=== PATIENT | female | born 1975 ===

== ENCOUNTER 2020-04-17 13:06 | Emergency (ER) | payer MEDICAID ==
[~2020-04-17] VITALS: Ht 167.6 cm; Wt 85.9 kg
[2020-04-17 13:09] VITALS: BP 148/109
--- NOTE | 2020-04-17 13:19 | NUR ---
PT AMBULATED TO ER BED 07
--- NOTE | 2020-04-17 13:50 | NUR ---
ERMD AT BEDSIDE
[2020-04-17] MEDS ORDERED: KETOROLAC 60 MG/2 ML VIAL IM ONE (13:55)
--- NOTE | 2020-04-17 14:05 | NUR ---
DENIES RECENT TRAVEV LONG CAR RIDES OR AIRPLANEIDE.AMBULATORY WITH STEADY GAIT NO SWELLING ORDERS NOTED
[2020-04-17 14:49] VITALS: BP 140/101
--- NOTE | 2020-04-17 14:50 | NUR ---
Patient discharged with v/s stable. Written and verbal after care instructions given and explained. Patient alert, oriented and verbalized understanding of instructions. Ambulatory with steady gait. All questions addressed prior to discharge. ID band removed. Patient advised to follow up with PMD. Rx of ROBAXIN, IBUPROFEN AND TRAMADOL given. Patient educated on indication of medication including possible reaction and side effects. Opportunity to ask questions provided and answered.
== END 2020-04-17 14:50 | disposition home or self-care (01) ==
LOC: MED 13:06
DX: M54.41 Lumbago with sciatica, right side (principal); M54.42 Lumbago with sciatica, left side
CPT/HCPCS: 72100; 81002; 81025; 96372; 99283; J1885

== ENCOUNTER 2020-12-03 09:23 | Emergency (ER) | payer MEDICAID ==
[~2020-12-03] VITALS: Ht 172.7 cm; Wt 87.1 kg
[2020-12-03 09:35] VITALS: BP 124/74
--- NOTE | 2020-12-03 09:38 | NUR ---
Patient given urine cup and ambulated to lobby
[2020-12-03] MEDS ORDERED: DICYCLOMINE 20 MG/2 ML VIAL IM ONE (09:55)
[2020-12-03 10:32] LABS: BASOPHILS % (AUTO) 0.8 % (0.0-2.0); EOSINOPHILS # (AUTO) 0.2 K/uL (0-0.4); EOSINOPHILS % (AUTO) 4.3 % (0.0-4.0); HEMATOCRIT 41.4 % (36-48); HEMOGLOBIN 13.8 g/dL (12.0-16.0); LYMPHOCYTES # (AUTO) 1.6 K/uL (2.5-16.5); LYMPHOCYTES % (AUTO) 30.5 % (20.5-51.1); MEAN CORPUSCULAR HEMOGLOBIN 29 pg (27-31); MEAN CORPUSCULAR HGB CONC 33 g/dL (33-37); MEAN CORPUSCULAR VOLUME 86.5 fL (80-94); MONOCYTES # (AUTO) 0.3 K/uL (0.8-1.0); NEUTROPHILS # (AUTO) 3.2 K/uL (1.8-7.7); NEUTROPHILS % (AUTO) 59.4 % (42.2-75.2); PLATELET COUNT (AUTO) 229 K/uL (140-450); RED BLOOD CELL COUNT(AUTO) 4.79 MIL/uL (4.20-5.40); RED CELL DISTRIBUTION WIDTH 13.5 % (11.6-13.7); WHITE BLOOD COUNT (AUTO) 5.3 K/uL (4.8-10.8)
[2020-12-03 10:49] LABS: ALBUMIN 3.8 g/dL (3.4-5.0); ANION GAP 10.9 (8-16); CARBON DIOXIDE 28.1 mmol/L (21-32); CREATININE 0.7 mg/dL (0.6-1.3); TOTAL BILIRUBIN 0.5 mg/dL (0.0-1.0)
[2020-12-03 11:13] VITALS: BP 124/74
--- NOTE | 2020-12-03 11:13 | NUR ---
Patient discharged with v/s stable. Written and verbal after care instructions given and explained. Patient alert, oriented and verbalized understanding of instructions. Ambulatory with steady gait. All questions addressed prior to discharge. ID band removed. Patient advised to follow up with PMD. Rx of zofran 4mg, Bentyl 20mg given. Patient educated on indication of medication including possible reaction and side effects. Opportunity to ask questions provided and answered.
== END 2020-12-03 11:13 | disposition home or self-care (01) ==
LOC: MED 09:23
DX: R19.7 Diarrhea, unspecified (principal); Z90.49 Acquired absence of other specified parts of digestive tract
CPT/HCPCS: 36415; 80053; 81002; 81025; 83690; 85025; 96372; 99283; J0500

== ENCOUNTER 2021-02-18 15:06 | Emergency (ER) | payer MEDICAID ==
[~2021-02-18] VITALS: Ht 172.7 cm; Wt 68.0 kg
[2021-02-18 15:09] VITALS: BP 121/79
[2021-02-18] MEDS ORDERED: KETOROLAC 60 MG/2 ML VIAL IM ONE (16:25)
[2021-02-18] MEDS ORDERED: ONDANSETRON 4 MG ODT PO ONE (16:30)
[2021-02-18] MEDS ORDERED: ACET-8386 PO (16:54)
[2021-02-18] MEDS ORDERED: ONDA8TAB87 PO (16:54)
[2021-02-18] MEDS ORDERED: IBUP-2213 PO (16:54)
[2021-02-18 17:21] VITALS: BP 121/79
--- NOTE | 2021-02-18 17:22 | NUR ---
Patient discharged with v/s stable. Written and verbal after care instructions given and explained. Patient alert, oriented and verbalized understanding of instructions. Ambulatory with steady gait. All questions addressed prior to discharge. ID band removed. Patient advised to follow up with PMD. Rx of ibuprofen, zofran, and hydrocodone given. Patient educated on indication of medication including possible reaction and side effects. Opportunity to ask questions provided and answered.
--- NOTE | 2021-02-18 17:24 | NUR ---
45 year old FEMALE COMPLAINS OF HEADACHE X YESTERDAY, ALSO COMPLAINS OF NAUSEA. PT AOX4, BREATHING EVEN AND UNLABORED, SKIN WARM AND DRY. BED IN LOWEST POSITION, LOCKED, BED RAIL UPX1. PMH - DENIES ALLERGIES - NKA
== END 2021-02-18 17:22 | disposition home or self-care (01) ==
LOC: MED 15:06
DX: R51.9 Headache, unspecified (principal); H53.149 Visual discomfort, unspecified; R11.0 Nausea; Z90.49 Acquired absence of other specified parts of digestive tract; Z90.710 Acquired absence of both cervix and uterus
CPT/HCPCS: 81002; 81025; 96372; 99283; J1885; Q0162

== ENCOUNTER 2021-06-14 13:28 | Emergency (ER) | payer MEDICAID ==
[~2021-06-14] VITALS: Ht 172.7 cm; Wt 81.6 kg
[~2021-06-14 13:28] MED LIST: ACET-8386 PO; IBUP-2213 PO; ONDA8TAB87 PO
[2021-06-14 13:36] VITALS: BP 118/83
--- NOTE | 2021-06-14 14:11 | NUR ---
Dr. Rajput is evaluating the patient at bedside.
--- NOTE | 2021-06-14 14:15 | NUR ---
45/F presents to ED with c/o diarrhea. Patient states she has been having continuing diarrhea for 4 days, stating the last two days she noticed blood near rectum. Patient also c/o 10/10 epigastric pain, stating non radiating, reports taking pepto bismol with no improvement. Patient denies chest pain, sob, or dysuria.
[2021-06-14] MEDS ORDERED: CIPR500T4 PO (14:19)
[2021-06-14] MEDS ORDERED: IBUP-2213 PO (14:19)
[2021-06-14] MEDS ORDERED: LOPE-289 PO (14:19)
[2021-06-14 14:30] VITALS: BP 118/83
--- NOTE | 2021-06-14 14:30 | NUR ---
Patient discharged with v/s stable. Written and verbal after care instructions given and explained. Patient alert, oriented and verbalized understanding of instructions. Ambulatory with steady gait. All questions addressed prior to discharge. ID band removed. Patient advised to follow up with PMD. Rx of Ibuprofen, cipro and Immodium given. Patient educated on indication of medication including possible reaction and side effects. Opportunity to ask questions provided and answered.
== END 2021-06-14 14:30 | disposition home or self-care (01) ==
LOC: MED 13:28
DX: R19.7 Diarrhea, unspecified (principal); K62.5 Hemorrhage of anus and rectum; R10.9 Unspecified abdominal pain
CPT/HCPCS: 99283

== ENCOUNTER 2022-12-21 14:20 | Emergency (ER) | payer MEDICAID ==
[~2022-12-21] VITALS: Ht 170.2 cm; Wt 90.3 kg
[~2022-12-21 14:20] MED LIST changes: -ACET-8386 PO; +ACET-8905 PO; +CIPR500T4 PO; +LOPE-289 PO
[2022-12-21 14:47] VITALS: BP 152/93
[2022-12-21] MEDS ORDERED: DICYCLOMINE HCL LIQUID 10 MG/5 ML UDC PO ONE (15:55)
--- NOTE | 2022-12-21 16:33 | NUR ---
Patient ambulated to bed 8.
--- NOTE | 2022-12-21 17:00 | NUR ---
47 y/o female bib self with c/o pelvic cramping that radiates to his bilateral upper thighs x 2 weeks. Per patient, also has had nausea, lightheadedness and headaches. Patient has been taking Tylenol for symptoms. Denies any diarrhea, fever or chills. Denies any new foods or sick contacts. Medical History: Hysterectomy (8years ago) MARIO
[2022-12-21 17:18] LABS: APPEARANCE,URINE N (CLEAR); COLOR,URINE YELLOW (YELLOW)
[2022-12-21 17:19] LABS: BILIRUBIN,URINE NEGATIVE (NEGATIVE); BLOOD, URINE NEGATIVE (NEGATIVE); LEUKOCYTE ESTERASE ,URINE NEGATIVE (NEGATIVE); NITRITE, URINE NEGATIVE (NEGATIVE); PH,URINE 6.5 (5.0-9.0); UGLUCOSE NEGATIVE (NEGATIVE)
--- NOTE | 2022-12-21 17:30 | NUR ---
lab at [facility].
[2022-12-21 18:00] LABS: ALBUMIN 3.8 g/dL (3.4-5.0); ANION GAP 9.6 (8-16); CARBON DIOXIDE 32.9 mmol/L (21-32); CREATININE 0.8 mg/dL (0.6-1.3); POTASSIUM 3.5 mmol/L (3.5-5.1); TOTAL BILIRUBIN 0.2 mg/dL (0.0-1.0)
[2022-12-21 18:08] LABS: BASOPHILS % (AUTO) 0.6 % (0.0-2.0); EOSINOPHILS # (AUTO) 0.3 K/uL (0-0.4); EOSINOPHILS % (AUTO) 4.3 % (0.0-4.0); HEMATOCRIT 39.4 % (36-48); HEMOGLOBIN 13.2 g/dL (12.0-16.0); LYMPHOCYTES # (AUTO) 2.2 K/uL (2.5-16.5); LYMPHOCYTES % (AUTO) 33.1 % (20.5-51.1); MEAN CORPUSCULAR HEMOGLOBIN 28 pg (27-31); MEAN CORPUSCULAR HGB CONC 34 g/dL (33-37); MEAN CORPUSCULAR VOLUME 83.7 fL (80-94); MONOCYTES # (AUTO) 0.5 K/uL (0.8-1.0); MONOCYTES % (AUTO) 6.8 % (1.7-9.3); NEUTROPHILS # (AUTO) 3.7 K/uL (1.8-7.7); NEUTROPHILS % (AUTO) 55.2 % (42.2-75.2); PLATELET COUNT (AUTO) 217 K/uL (140-450); RED BLOOD CELL COUNT(AUTO) 4.71 MIL/uL (4.20-5.40); WHITE BLOOD COUNT (AUTO) 6.7 K/uL (4.8-10.8)
[2022-12-21] MEDS ORDERED: BEN10 PO (18:26)
[2022-12-21] MEDS ORDERED: NAPR-54 PO (18:26)
[2022-12-21 18:44] VITALS: BP 115/71
--- NOTE | 2022-12-21 18:44 | NUR ---
Patient discharged with v/s stable. Written and verbal after care instructions given. Patient alert, oriented and verbalized understanding of instructions. Ambulatory with steady gait. All questions addressed prior to discharge. ID band removed. Patient advised to follow up with PMD. Rx of bentyl and Naproxen given. Opportunity to ask questions provided and answered.
--- NOTE | 2022-12-21 18:45 | NUR ---
The patient's care was reviewed and supervised by Radha Prado RN.
== END 2022-12-21 18:44 | disposition home or self-care (01) ==
LOC: MED 14:20
DX: R10.30 Lower abdominal pain, unspecified (principal); R22.1 Localized swelling, mass and lump, neck; Z79.899 Other long term (current) drug therapy; Z90.710 Acquired absence of both cervix and uterus
CPT/HCPCS: 36415; 80053; 81003; 81025; 83690; 85025; 99283